=== PATIENT | female | born 1995 | race Caucasian/White ===

== ENCOUNTER 2020-04-30 12:17 | Emergency (ER) | payer SELFPAY ==
[2020-04-30 12:21] VITALS: BP 131/107; PULSE 124; RESP 24; TEMP 37; O2SAT 99; BMI 27.4
--- NOTE | 2020-04-30 12:52 | XR_ITS ---
WS: [id number] XR forearm RT 2V [id number] REASON FOR EXAM: trauma, cut deep by glass FINDINGS: Dory are seen across the proximal radius. No definite foreign bodies in this area are se en. There were no fractures of the forearm seen. XR/XR forearm RT 2V [id number] IMPRESSION: No definite foreign bodies are seen in the proximal forearm.
--- NOTE | 2020-04-30 12:52 | ED_ITS ---
HPI - Wound/Laceration General: Chief Complaint: Wound/Laceration Stated Complaint: ARM LAC Time Seen by Provider: 04/30/20 12:25 History of Present Illness: HPI narrative: Patient cut right forearm trying to busted a glass window received deep laceration to the lateral aspect of the right forearm Onset (ago): minute(s) Place: home Patient tetanus UTD: Yes Context: accidental Associated symptoms: Reports no associated symptoms; Denies chills, fever(s), nausea or vomiting Review of Systems Const: Denies: fever(s), chills or body aches Eyes: Denies: change in vision or blurry vision ENMT: Denies: throat pain or nasal congestion Card: Denies: chest pain or dyspnea on exertion Resp: Denies: dyspnea, productive cough or non-productive cough GI: Denies: abdominal pain, nausea or vomiting Musc: Denies: extremity pain Skin/Breast: Reports: other (Laceration right forearm); Denies: rash Neuro: Denies: headache(s) Psych: Denies: anxiety or depression Raymundo/Lymph: Denies: easy bruising PFSH ED PFSH: Social History Smoking and tobacco status: current every day smoker Physical Exam Const: COMMON NORMALS: no acute distress, average body habitus and patient o riented x3 HENMT: COMMON NORMALS: normocephalic HEAD & SCALP: normal to inspection and normocephalic FACE & SINUS: normal facial exam Eye: COMMON NORMALS: conjunctivae normal GENERAL EYE: appearance normal, both eyes and all related structures CONJUNCTIVA: Yes conjunctivae normal Neck/C-Spine: COMMON NORMALS: no JVD Chest: COMMONS NORMALS: normal inspection of the chest Resp: COMMON NORMALS: normal respiratory effort and clear to auscultation bilaterally AUSCULTATION: clear to auscultation bilaterally Cardio: COMMON NORMALS: no JVD, regular rate and regular rhythm RATE: regular rate RHYTHM: regular rhythm GI: COMMON NORMALS: Normal to inspection, nondistended, normoactive bowel sounds present Extremity: COMMON NORMALS: normal to inspection and full ROM RIGHT UPPER EXTREMITY: Yes lower arm (8 cm deep laceration medial aspect right arm just distal to the elbow no active bleeding neurovascularly distal intact) Neuro: COMMON NORMALS: patient oriented x3 Procedures Laceration Laceration 1: Site: upper extremity Side (If applicable): right Size (cm): 8 Description: linear and irregular Depth: involves muscle layer Local Anesthetic: lidocaine 2% and with epi Amount of anesthesia used (mL): 8 Pre-repair: wound explored, irrigated extensively, deep structures intact and wound margins revised Skin layer closed with: nylon Size (cm): 3-0 Number of sutures: 4 Technique: simple, interrupted and other (11 gabriel) Subcutaneous layer closed with: chromic gut Size: 4-0 Number of sutures: 8 Muscle layer closed with: chromic gut Size: 4-0 Number of sutures: 3 Course Vital Signs: Vital signs: Vital Signs Temperature 98.6 F 04/30/20 12:21 Pulse Rate 124 H 04/30/20 12:21 Respiratory Rate 24 H 04/30/20 12:21 Blood Pressure 131/107 04/30/20 12:21 Pulse Oximetry 99 04/30/20 12:21 Coding Level of Care Code ED Nurse [facility]
[2020-04-30] MEDS: HYDROcodone-acetaminophen 5-325 mg Tablet 1 TAB PO (13:13)
--- NOTE | 2020-04-30 13:15 | PC.NURSE ---
wound right forearm cleaned and dressed after gabriel placed. no other wounds noted. paper scrub top provided for pt. pain med given as ordered.
[2020-04-30 13:48] VITALS: BP 100/56; PULSE 95; RESP 18; O2SAT 96
== END 2020-04-30 13:57 | disposition home or self-care (01) ==
PROVIDERS: Emergency Provider Nurse Practitioner Family
DX: S41.111A Laceration without foreign body of right upper arm, initial encounter (principal); W25.XXXA Contact with sharp glass, initial encounter; F17.210 Nicotine dependence, cigarettes, uncomplicated
CPT/HCPCS: 12004; 12345; 73090; 99283; J2001